=== PATIENT | male | born 1940 | race Caucasian/White ===

== ENCOUNTER → 2016-04-26 | Outpatient (REF) ==
[~2016-04-26] MED LIST: ALLOPURINOL300 MG PO; ASPIRIN E.C. 8181 MG PO; AVAPRO300 MG PO; B COMPLEX & B121 TAB PO; BEELITH; BYSTOLIC2.5 MG PO; BYSTOLIC5 MG PO; CALCIUM CITRATE1 TA1 PO; COZAAR100 MG PO; FLOMAX 0.40.4 MG/CAP PO; GABAPENTIN300 M1 PO; HCTZ 25MG25 MG PO; IRON325 M2 PO; K-DUR20 MEQ PO; KLONOPIN 0.5MG0.5 MG PO; KLONOPIN 1MG1 MG PO; MAG-OX 400400 MG/TAB PO; MICROZIDE12.5 MG PO; MUCINEX 60600 MG/TA1 PO; MULTI VITAMINS1 TAB PO; NEURONTIN300 MG/CAP PO; NEXIUM40 MG PO; NORCO 325 MG-51 TAB PO; OCUVITE1 TA1 PO; OMEGA 31000 MG; PHARMASSURE GA500 MG PO; POTASSIUM CH2 MEQ/ML; PRILOSEC 20MG20 MG PO; PROMETHAZINE V473 M2 PO; PURE & GENTLE 330 ML OP; ROBITUSSIN100 MG/5 M PO; ULTRAM 50MG TAB50 MG PO; VALIUM 5MG T5 MG/TAB PO; VITAMIN B-625 MG; VITAMIN D32000 IU PO; ZYLOPRIM 300MG300 MG PO; ZYRTEC 10MG10 MG PO
== END ==
LOC: ZMSC 11:28
DX: Z01.89 Encounter for other specified special examinations (principal)

== ENCOUNTER → 2016-06-12 | Outpatient (CLI) | payer MEDICARE, BC | LOC: COL.RAD 10:13 | DX: N50.3 Cyst of epididymis (principal) ==

== ENCOUNTER 2016-07-04 08:54 | Day surgery (SDC) | payer MEDICARE, BC ==
[~2016-07-04] VITALS: Ht 182.9 cm; Wt 112.2 kg
[2016-07-04] VITALS (7 sets, daily range): BP systolic 119–142; BP diastolic 74–94; PULSE 61–72; TEMP 97
[~2016-07-04 08:54] MED LIST changes: -BYSTOLIC2.5 MG PO; -BYSTOLIC5 MG PO; -MICROZIDE12.5 MG PO; -MUCINEX 60600 MG/TA1 PO; -MULTI VITAMINS1 TAB PO; -ROBITUSSIN100 MG/5 M PO; -VITAMIN D32000 IU PO; -ZYRTEC 10MG10 MG PO
[2016-07-04] MEDS ORDERED: MUCINEX 60600 MG/TA1 PO (09:31)
[2016-07-04] MEDS ORDERED: MICROZIDE12.5 MG PO (09:33)
[2016-07-04] MEDS ORDERED: MULTI VITAMINS1 TAB PO (09:35)
[2016-07-04] MEDS ORDERED: BYSTOLIC2.5 MG PO (09:36)
[2016-07-04] MEDS ORDERED: ROBITUSSIN100 MG/5 M PO (09:41)
[2016-07-04 10:04] LABS: HEMATOCRIT 43.1 % (42.0-52.0); HEMOGLOBIN 15.1 g/dl (13.5-18.0); MEAN CELL VOLUME 93 fl (80.0-100.0); MEAN CORPUSCULAR HEMOGLOBIN 33 pg (27.0-31.0); MEAN CORPUSCULAR HGB CONC 35 g/dl (33.0-37.0); MEAN PLATELET VOLUME 10.4 fl (7.4-10.4); PLATELET COUNT 196 K/mm3 (130-400); RED BLOOD COUNT 4.63 M/mm3 (4.20-5.60); REDCELL DISTRIBUTION WIDTH-CV 13.1 % (11.5-14.5); WHITE BLOOD COUNT 7.4 K/mm3 (4.8-10.8)
[2016-07-04 10:08] LABS: INR 1.1 (0.8-3.0); PROTHROMBIN TIME 12.1 SECONDS (9.7-12.8)
[2016-07-04 10:19] LABS: CALCIUM 9.4 mg/dL (8.4-10.2); CREATININE, serum 0.62 mg/dL (0.66-1.25); POTASSIUM 3.9 mmol/L (3.4-5.0)
== END 2016-07-04 16:19 | disposition home or self-care (01) ==
LOC: EUO 08:54 → COL.RAD 09:00 → EUO 09:00
PROVIDERS: Internal Medicine Cardiovascular Disease
DX: R94.39 Abnormal result of other cardiovascular function study (principal); R00.1 Bradycardia, unspecified; K21.9 Gastro-esophageal reflux disease without esophagitis; I44.7 Left bundle-branch block, unspecified; I34.1 Nonrheumatic mitral (valve) prolapse; G62.9 Polyneuropathy, unspecified; R06.02 Shortness of breath; E55.9 Vitamin D deficiency, unspecified; M85.80 Other specified disorders of bone density and structure, unspecified site; I10 Essential (primary) hypertension
CPT/HCPCS: C1769; C1887; C1894; J1200; J1644; J2250; J3010; J7512; Q9967

== ENCOUNTER 2016-10-22 10:02 | Day surgery (SDC) | payer MEDICARE, BC ==
[~2016-10-22] VITALS: Ht 182.9 cm; Wt 109.0 kg
[2016-10-22] VITALS (7 sets, daily range): BP systolic 119–143; BP diastolic 81–94; PULSE 60–79; TEMP 97.9–98.4
[~2016-10-22 10:02] MED LIST changes: +BYSTOLIC2.5 MG PO; +MICROZIDE12.5 MG PO; +MUCINEX 60600 MG/TA1 PO; +MULTI VITAMINS1 TAB PO; +ROBITUSSIN100 MG/5 M PO
[2016-10-22 10:22] LABS: HEMATOCRIT 46.8 % (42.0-52.0); HEMOGLOBIN 16.3 g/dl (13.5-18.0); MEAN CELL VOLUME 94 fl (80.0-100.0); MEAN CORPUSCULAR HEMOGLOBIN 33 pg (27.0-31.0); MEAN CORPUSCULAR HGB CONC 35 g/dl (33.0-37.0); MEAN PLATELET VOLUME 10.5 fl (7.4-10.4); PLATELET COUNT 195 K/mm3 (130-400); RED BLOOD COUNT 4.98 M/mm3 (4.20-5.60); REDCELL DISTRIBUTION WIDTH-CV 13.3 % (11.5-14.5)
[2016-10-22 10:27] LABS: PROTHROMBIN TIME 11.2 SECONDS (9.7-12.8)
[2016-10-22 10:31] LABS: CALCIUM 9.8 mg/dL (8.4-10.2); CREATININE, serum 0.66 mg/dL (0.66-1.25); POTASSIUM 4.3 mmol/L (3.4-5.0)
[2016-10-22] MEDS ORDERED: ZYRTEC 10MG10 MG PO (11:19)
[2016-10-22] MEDS ORDERED: VITAMIN D32000 IU PO (11:20)
[2016-10-23 00:12] VITALS: BP 119/82; PULSE 67; TEMP 98
[2016-10-23 04:15] VITALS: BP 112/67; PULSE 65; TEMP 98.2
[2016-10-23 08:19] VITALS: BP 108/75; PULSE 73; TEMP 97.5
[2016-10-23] MEDS ORDERED: BYSTOLIC5 MG PO (11:47)
== END 2016-10-23 12:17 | disposition home or self-care (01) ==
LOC: COL.CAR 10:02 → MEDICAL 13:33 → COL.CAR 10-23 12:17
PROVIDERS: Internal Medicine Cardiovascular Disease
DX: I49.5 Sick sinus syndrome (principal); R00.1 Bradycardia, unspecified; I44.7 Left bundle-branch block, unspecified; I10 Essential (primary) hypertension; G47.30 Sleep apnea, unspecified
CPT/HCPCS: OP; C1785; C1894; C1898; J0690; J2250; J3010; J7030

== ENCOUNTER → 2017-03-26 | Outpatient (CLI) | payer MEDICARE, BC ==
[~2017-03-26] MED LIST changes: +BYSTOLIC5 MG PO; +VITAMIN D32000 IU PO; +ZYRTEC 10MG10 MG PO
== END ==
LOC: COL.RAD 03-21 13:15
DX: I67.1 Cerebral aneurysm, nonruptured (principal); G31.89 Other specified degenerative diseases of nervous system

== ENCOUNTER → 2017-05-23 | Outpatient (CLI) | payer MEDICARE, BC | LOC: COL.PUL 08:44 | DX: R06.09 Other forms of dyspnea (principal) ==

== ENCOUNTER → 2017-12-05 | Outpatient (CLI) | payer MEDICARE, BC | LOC: COL.RAD 14:00 | DX: M47.27 Other spondylosis with radiculopathy, lumbosacral region (principal); M48.07 Spinal stenosis, lumbosacral region; M99.74 Connective tissue and disc stenosis of intervertebral foramina of sacral region; M99.73 Connective tissue and disc stenosis of intervertebral foramina of lumbar region; M43.17 Spondylolisthesis, lumbosacral region; G89.29 Other chronic pain ==

== ENCOUNTER → 2018-01-07 | Outpatient (CLI) | payer MEDICARE, BC | LOC: COL.RAD 07:33 | DX: N13.30 Unspecified hydronephrosis (principal); R94.5 Abnormal results of liver function studies; Z86.2 Personal history of diseases of the blood and blood-forming organs and certain disorders involving the immune mechanism ==

== ENCOUNTER → 2018-01-14 | Outpatient (CLI) | payer MEDICARE, BC | LOC: MHCPAIN 12:05 | DX: G89.29 Other chronic pain (principal); M47.817 Spondylosis without myelopathy or radiculopathy, lumbosacral region; M54.16 Radiculopathy, lumbar region; M53.3 Sacrococcygeal disorders, not elsewhere classified; M48.061 Spinal stenosis, lumbar region without neurogenic claudication | CPT/HCPCS: G0463 ==

== ENCOUNTER → 2018-01-19 | Outpatient (CLI) | payer MEDICARE, BC | LOC: MHCPAIN 12:29 | DX: M47.817 Spondylosis without myelopathy or radiculopathy, lumbosacral region (principal); M54.16 Radiculopathy, lumbar region | CPT/HCPCS: A9585; J1040 ==

== ENCOUNTER → 2018-02-03 | Outpatient (CLI) | payer MEDICARE, BC | LOC: MHCPAIN 09:20 | DX: G89.29 Other chronic pain (principal); M47.817 Spondylosis without myelopathy or radiculopathy, lumbosacral region; M54.16 Radiculopathy, lumbar region; M53.3 Sacrococcygeal disorders, not elsewhere classified; M48.061 Spinal stenosis, lumbar region without neurogenic claudication | CPT/HCPCS: G0463 ==

== ENCOUNTER → 2018-02-09 | Outpatient (CLI) | payer MEDICARE, BC | LOC: MHCPAIN 08:31 | DX: Z76.89 Persons encountering health services in other specified circumstances (principal) ==

== ENCOUNTER → 2018-02-23 | Outpatient (CLI) | payer MEDICARE, BC | LOC: MHCPAIN 10:25 | DX: M47.817 Spondylosis without myelopathy or radiculopathy, lumbosacral region (principal); M54.16 Radiculopathy, lumbar region | CPT/HCPCS: A9585; J1100 ==

== ENCOUNTER → 2018-03-24 | Outpatient (CLI) | payer MEDICARE, BC | LOC: MHCPAIN 08:59 | DX: G89.29 Other chronic pain (principal); M47.817 Spondylosis without myelopathy or radiculopathy, lumbosacral region; M54.16 Radiculopathy, lumbar region; M53.3 Sacrococcygeal disorders, not elsewhere classified; M48.061 Spinal stenosis, lumbar region without neurogenic claudication | CPT/HCPCS: G0463 ==

== ENCOUNTER → 2018-04-02 | Outpatient (CLI) | payer MEDICARE, BC | LOC: MHCPAIN 08:47 | DX: M47.817 Spondylosis without myelopathy or radiculopathy, lumbosacral region (principal); M54.16 Radiculopathy, lumbar region | CPT/HCPCS: A9585; J1100; Q9967 ==

== ENCOUNTER → 2018-06-03 | Outpatient (CLI) | payer MEDICARE, BC | LOC: MHCPAIN 08:43 | DX: G89.29 Other chronic pain (principal); M47.817 Spondylosis without myelopathy or radiculopathy, lumbosacral region; M54.16 Radiculopathy, lumbar region; M53.3 Sacrococcygeal disorders, not elsewhere classified; M48.061 Spinal stenosis, lumbar region without neurogenic claudication | CPT/HCPCS: G0463 ==

== ENCOUNTER → 2018-08-31 | Outpatient (CLI) | payer MEDICARE, BC | LOC: MHCPAIN 09:10 | DX: G89.29 Other chronic pain (principal); M47.817 Spondylosis without myelopathy or radiculopathy, lumbosacral region; M54.16 Radiculopathy, lumbar region; M53.3 Sacrococcygeal disorders, not elsewhere classified; M48.061 Spinal stenosis, lumbar region without neurogenic claudication | CPT/HCPCS: G0463 ==

== ENCOUNTER → 2018-09-03 | Outpatient (CLI) | payer MEDICARE, BC | LOC: MHCPAIN 07:55 | DX: M47.817 Spondylosis without myelopathy or radiculopathy, lumbosacral region (principal); M54.16 Radiculopathy, lumbar region | CPT/HCPCS: A9585; J1100 ==

== ENCOUNTER → 2018-09-14 | Outpatient (CLI) | payer MEDICARE, BC | LOC: MHCPAIN 09:20 | DX: G89.29 Other chronic pain (principal); M47.817 Spondylosis without myelopathy or radiculopathy, lumbosacral region; M54.16 Radiculopathy, lumbar region; M53.3 Sacrococcygeal disorders, not elsewhere classified; M48.061 Spinal stenosis, lumbar region without neurogenic claudication | CPT/HCPCS: G0463 ==

== ENCOUNTER → 2018-09-17 | Outpatient (CLI) | payer MEDICARE, BC | LOC: MHCPAIN 07:42 | DX: M47.817 Spondylosis without myelopathy or radiculopathy, lumbosacral region (principal); M54.16 Radiculopathy, lumbar region | CPT/HCPCS: A9585; J1100 ==

== ENCOUNTER → 2018-10-21 | Outpatient (CLI) | payer MEDICARE, BC | LOC: MHCPAIN 09:27 | DX: G89.29 Other chronic pain (principal); M47.817 Spondylosis without myelopathy or radiculopathy, lumbosacral region; M54.16 Radiculopathy, lumbar region; M53.3 Sacrococcygeal disorders, not elsewhere classified; M48.061 Spinal stenosis, lumbar region without neurogenic claudication | CPT/HCPCS: G0463 ==

== ENCOUNTER → 2018-11-05 | Outpatient (CLI) | payer MEDICARE, BC | LOC: MHCPAIN 07:58 | DX: M47.817 Spondylosis without myelopathy or radiculopathy, lumbosacral region (principal); M54.16 Radiculopathy, lumbar region | CPT/HCPCS: A9585; J1100 ==

== ENCOUNTER → 2018-11-11 | Outpatient (CLI) | payer MEDICARE, BC | LOC: COL.RAD 07:46 | DX: N13.2 Hydronephrosis with renal and ureteral calculous obstruction (principal); Z87.442 Personal history of urinary calculi ==

== ENCOUNTER → 2018-12-07 | Outpatient (CLI) | payer MEDICARE, BC | LOC: MHCPAIN 08:55 | DX: G89.29 Other chronic pain (principal); M47.817 Spondylosis without myelopathy or radiculopathy, lumbosacral region; M54.16 Radiculopathy, lumbar region; M53.3 Sacrococcygeal disorders, not elsewhere classified; M48.061 Spinal stenosis, lumbar region without neurogenic claudication | CPT/HCPCS: G0463 ==

== ENCOUNTER → 2019-03-31 | Outpatient (CLI) | payer MEDICARE, BC | LOC: MHCPAIN 08:55 | DX: M47.817 Spondylosis without myelopathy or radiculopathy, lumbosacral region (principal); M54.16 Radiculopathy, lumbar region | CPT/HCPCS: G0463 ==

== ENCOUNTER → 2020-01-11 | Outpatient (CLI) | payer MEDICARE, BC | LOC: ZCOL.LAB 15:14 | DX: M79.89 Other specified soft tissue disorders (principal); R23.8 Other skin changes ==

== ENCOUNTER → 2020-01-12 | Outpatient (CLI) | payer MEDICARE, BC | LOC: COL.VAS 08:56 | DX: I82.812 Embolism and thrombosis of superficial veins of left lower extremity (principal); M71.22 Synovial cyst of popliteal space [Baker], left knee ==

== ENCOUNTER → 2020-05-02 | Outpatient (CLI) | payer MEDICARE, BC | LOC: MHCPAIN 08:00 | DX: M47.817 Spondylosis without myelopathy or radiculopathy, lumbosacral region (principal); M48.062 Spinal stenosis, lumbar region with neurogenic claudication; M53.3 Sacrococcygeal disorders, not elsewhere classified; G89.29 Other chronic pain | CPT/HCPCS: G0463 ==

== ENCOUNTER → 2020-05-04 | Outpatient (CLI) | payer MEDICARE, BC | LOC: MHCPAIN 09:52 | DX: M47.817 Spondylosis without myelopathy or radiculopathy, lumbosacral region (principal); M54.16 Radiculopathy, lumbar region | CPT/HCPCS: A9585; J1100; Q9967 ==

== ENCOUNTER → 2020-05-16 | Outpatient (CLI) | payer MEDICARE, BC | LOC: MHCPAIN 09:53 | DX: M47.817 Spondylosis without myelopathy or radiculopathy, lumbosacral region (principal); M48.062 Spinal stenosis, lumbar region with neurogenic claudication; M54.16 Radiculopathy, lumbar region; G89.29 Other chronic pain | CPT/HCPCS: G0463 ==

== ENCOUNTER → 2020-06-22 | Outpatient (CLI) | payer MEDICARE, BC | LOC: MHCPAIN 09:52 | DX: M47.817 Spondylosis without myelopathy or radiculopathy, lumbosacral region (principal); M54.17 Radiculopathy, lumbosacral region | CPT/HCPCS: A9585; J1100 ==

== ENCOUNTER → 2020-07-05 | Outpatient (CLI) | payer MEDICARE, BC | LOC: MHCPAIN 11:05 | DX: M47.816 Spondylosis without myelopathy or radiculopathy, lumbar region (principal); M54.16 Radiculopathy, lumbar region; M48.062 Spinal stenosis, lumbar region with neurogenic claudication; G89.29 Other chronic pain | CPT/HCPCS: G0463 ==

== ENCOUNTER → 2020-09-28 | Outpatient (CLI) | payer MEDICARE, BC | LOC: COL.RAD 14:04 | DX: S46.311A Strain of muscle, fascia and tendon of triceps, right arm, initial encounter (principal) ==

== ENCOUNTER → 2021-06-04 | Outpatient (CLI) | payer MEDICARE, BC | LOC: COL.RAD 13:48 | DX: Z95.0 Presence of cardiac pacemaker (principal) ==

== ENCOUNTER 2021-06-27 09:30 | Day surgery (SDC) | payer MEDICARE, BC ==
[2021-06-27] VITALS (10 sets, daily range): BP systolic 145–171; BP diastolic 87–122; PULSE 65–72; TEMP 97.9
[~2021-06-27] VITALS: Ht 177.8 cm; Wt 112.7 kg
[~2021-06-27 09:30] MED LIST changes: -OMEGA 31000 MG; +OMEGA-3 1000 MG1 CAP PO
[2021-06-27 10:03] LABS: HEMATOCRIT 47.9 % (42.0-52.0); HEMOGLOBIN 16.8 g/dl (13.5-18.0); MEAN CELL VOLUME 92 fl (80.0-100.0); MEAN CORPUSCULAR HEMOGLOBIN 32 pg (27-31); MEAN CORPUSCULAR HGB CONC 35 g/dl (33.0-37.0); PLATELET COUNT 232 K/mm3 (130-400); RED BLOOD COUNT 5.22 M/mm3 (4.20-5.60); REDCELL DISTRIBUTION WIDTH-CV 13.2 % (11.5-14.5)
[2021-06-27 10:15] LABS: INR 1.1 (0.8-3.0); PROTHROMBIN TIME 11.7 SECONDS (9.7-12.8)
[2021-06-27 10:17] LABS: PARTIAL THROMBOPLASTIN TIME 28.9 SECONDS (26.0-37.0)
[2021-06-27 10:19] LABS: CALCIUM 9.2 mg/dL (8.4-10.2); CREATININE, serum 0.77 mg/dL (0.72-1.25); POTASSIUM 4.4 mmol/L (3.5-4.5)
[2021-06-27] MEDS ORDERED: ZEBETA 5MG5 MG PO (12:35)
[2021-06-27] MEDS ORDERED: GENTEAL TEARS 015 M1 OU (12:37)
[2021-06-27] MEDS ORDERED: SINGULAIR 110 MG/TAB PO (12:38)
[2021-06-27] MEDS ORDERED: [UNRECOGNIZED DRUG - OTHER] DT (12:40)
[2021-06-27] MEDS ORDERED: TYLENOL 8 HR PO (12:41)
[2021-06-27] MEDS ORDERED: VITAMIN D31000 I1 PO (12:43)
[2021-06-27] MEDS ORDERED: NORVASC 5MG5 MG/TAB PO (15:02)
== END 2021-06-27 18:10 | disposition home or self-care (01) ==
LOC: COL.CAR 09:30
PROVIDERS: Internal Medicine Cardiovascular Disease
DX: R94.31 Abnormal electrocardiogram [ECG] [EKG] (principal); R93.1 Abnormal findings on diagnostic imaging of heart and coronary circulation; R06.09 Other forms of dyspnea; R06.02 Shortness of breath; I42.9 Cardiomyopathy, unspecified
CPT/HCPCS: J1644; J2250; J2405; J3010; J7512; Q9967

== ENCOUNTER 2022-07-02 13:21 | Inpatient (IN) | payer MEDICARE, BC ==
[~2022-07-02] VITALS: Ht 177.8 cm; Wt 109.0 kg
[~2022-07-02 13:21] MED LIST changes: +GENTEAL TEARS 015 M1 OU; +NORVASC 5MG5 MG/TAB PO; +SINGULAIR 110 MG/TAB PO; +TYLENOL 8 HR PO; +VITAMIN D31000 I1 PO; +ZEBETA 5MG5 MG PO; +[UNRECOGNIZED DRUG - OTHER] DT
[2022-07-02 14:04] LABS: HEMATOCRIT 41.8 % (42.0-52.0); HEMOGLOBIN 14.8 g/dl (13.5-18.0); MEAN CELL VOLUME 92 fl (80.0-100.0); MEAN CORPUSCULAR HEMOGLOBIN 33 pg (27-31); MEAN CORPUSCULAR HGB CONC 35 g/dl (33.0-37.0); MEAN PLATELET VOLUME 9.7 fl (7.4-10.4); PLATELET COUNT 229 K/mm3 (130-400); RED BLOOD COUNT 4.54 M/mm3 (4.20-5.60); REDCELL DISTRIBUTION WIDTH-CV 13.4 % (11.5-14.5)
[2022-07-02 14:22] LABS: CALCIUM 9.3 mg/dL (8.4-10.2); CREATININE, serum 0.83 mg/dL (0.72-1.25); POTASSIUM 3.8 mmol/L (3.5-4.5)
[2022-07-02 16:42] LABS: INR 1.1 (0.8-3.0); PROTHROMBIN TIME 12.3 SECONDS (9.7-12.8)
[2022-07-02 17:30] VITALS: BP 150/89; PULSE 71; TEMP 97.7
--- NOTE | 2022-07-02 17:33 | NUR ---
Pt arrived to the floor from ED. He is alert and oriented with pain complaints to his left hip. Pt did well with being moved from cart to bed using slide board. Pt then repositioned to get off ED cart sheets. Pt reported that it felt better being moved a little. Pt was able to void using urinal, he is requesting not to have a cortez catheter at this time. UA sent to lab. Brendon hose to his right leg and SCDs on bilaterally. Oriented pt and his to the room, both were familiar with how it works here. Educated on room service and assisted with ordering some dinner. Plan for sugery tomorrow which they are aware of. Ice to left hip. Pt on O2 at 2L per NC. PRN pain medication given for pain of 8-9/10.
[2022-07-02 17:36] LABS: COLLECTION METHOD CLEAN CATCH; PH 6.5 (5.0-8.5); URINE APPEARANCE Clear (CLEAR/HAZY); URINE BLOOD Negative (NEGATIVE); URINE COLOR Yellow (YELLOW); URINE GLUCOSE Negative (NEGATIVE); URINE KETONE Negative (NEGATIVE); URINE NITRATE Negative (NEGATIVE); URINE PROTEIN(semi-quant) Negative (NEGATIVE); URINE UROBILINOGEN 0.2 E.U/dL (0.2-1.0)
[2022-07-02 17:40] LABS: MUCOUS Present (NOT PRESENT); SQUAMOUS EPITHELIAL None Seen /hpf (0-10); URINE BACTERIA None Seen /hpf (NONE SEEN); URINE RBC 0-2 /hpf (0-2)
[2022-07-02] MEDS ORDERED: CYMBALTA 30MG30 MG PO (17:59)
[2022-07-02] MEDS ORDERED: CORDARONE200 MG/TAB PO (18:02)
[2022-07-02] MEDS ORDERED: NORCO 325 MG-7.1 TAB PO (18:44)
[2022-07-02] MEDS ORDERED: MASON NATURAL2000 IU PO (19:02)
[2022-07-02] MEDS ORDERED: VITAMIN D31000 I1 PO (19:03)
[2022-07-02 19:14] VITALS: BP 127/71; PULSE 70; TEMP 97.7
[2022-07-03] VITALS (13 sets, daily range): BP systolic 113–160; BP diastolic 67–92; PULSE 68–74; TEMP 97.5–98.9
[2022-07-03 06:48] LABS: BASO # 0.1 K/mm3 (0.0-0.2); BASO % 0.8 % (0.0-2.0); EOS # 0.2 K/mm3 (0.0-0.7); GRAN # 4.7 K/mm3 (1.4-6.5); GRAN % 60.8 % (42.2-75.2); HEMATOCRIT 42.2 % (42.0-52.0); HEMOGLOBIN 14.1 g/dl (13.5-18.0); LYMPH # 1.8 K/mm3 (1.2-3.4); LYMPH % 23.1 % (20.0-51.0); MEAN CELL VOLUME 96 fl (80.0-100.0); MEAN CORPUSCULAR HEMOGLOBIN 32 pg (27-31); MEAN CORPUSCULAR HGB CONC 33 g/dl (33.0-37.0); MEAN PLATELET VOLUME 10.3 fl (7.4-10.4); MONO # 0.9 K/mm3 (0.1-0.6); MONO % 11.9 % (1.7-9.3); PLATELET COUNT 222 K/mm3 (130-400); RED BLOOD COUNT 4.41 M/mm3 (4.20-5.60); REDCELL DISTRIBUTION WIDTH-CV 13.3 % (11.5-14.5)
[2022-07-03 07:00] LABS: CALCIUM 8.9 mg/dL (8.4-10.2); CREATININE, serum 0.74 mg/dL (0.72-1.25); POTASSIUM 3.4 mmol/L (3.5-4.5)
--- NOTE | 2022-07-03 09:00 | NUR ---
Pt doing okay this morning. He does have intermittent pain ranging from 3-10. Pt had ice bag on his left hip which had leaked. Linens changed, pt seemed to tolerate. Pt aware that the plan is for surgery today, unsure of physician or time at this time. Will update when made aware. Pt aware that he is to not have anything to eat or drink.
--- NOTE | 2022-07-03 10:27 | NUR ---
JOEY met with the patient, his (Phuong, ph#[phone]), daughter (Keturah), and grandson to discuss discharge plan. The patient lives in [place] with his . He reports independence with ADLs and has a cane. The patient's PCP is Dr. 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 The patient does not have a DPOA-HC in EMR, but he states that he does have one completed and that it designates his . The patient has a hip fracture and is awaiting surgery. SW discussed post-acute rehab upon discharge. The patient and his are agreeble to post-acute rehab and would prefer [facility] or [facility]. SW consulted [facility]. JOEY contacted and faxed a referral to [facility]. Awaiting screens. *Discharge plan: post-acute rehab. Referrals out*
--- NOTE | 2022-07-03 11:00 | NUR ---
Shift assessment is done. Patient has intermittent pain rating from 4-10. Using ice pack on his left thigh. Ice pack was leaked, so linen is changed. Surgery is scheduled for today, don't know the time yet.
--- NOTE | 2022-07-03 13:47 | NUR ---
Pt off the floor for surgery, family at bedside followed pt and staff down to OR waiting room. Pt voided prior to leaving for OR. Attempted to have BM, was unsuccessful.
--- NOTE | 2022-07-03 17:41 | NUR ---
Pt remains in surgery
--- NOTE | 2022-07-03 18:43 | NUR ---
Patient is back from surgery. Patient is alert and oriented x4, denies any pain, and in pleasant mood. Dressing is clean, dry, and intact. Patient's vitals are normal and is on 3L of O2 via nasal canula. He has some productive cough. Family is present in room.
[2022-07-04 03:17] VITALS: BP 108/84; PULSE 69; TEMP 99.2
[2022-07-04 07:10] VITALS: BP 115/65; PULSE 74; TEMP 98.1
--- NOTE | 2022-07-04 08:15 | NUR ---
0730 Shift Assessment complete, see shift assessment documentation. Pt stated no bowel movement since friday. SCDs were removed and put back on at time of assessment. Pt stated his pain was a 5 out of 10. Pt has call light within reach. Yeni FOSTER Student Nurse.
--- NOTE | 2022-07-04 08:23 | NUR ---
Lorraine, at [facility], reports that the patient looks clinically good and should be able to accept. They would just like to see therapy notes after surgery.
--- NOTE | 2022-07-04 09:27 | NUR ---
Initial visit; Patient says he is doing better and should be taking a walk today and later to determine if he will be going home or to re-hab. He thinks probably re-hab. Montessori Teacher offered God's blessings and will keep him in her prayers.
[2022-07-04 10:32] LABS: CALCIUM 9.4 mg/dL (8.4-10.2); CREATININE, serum 0.83 mg/dL (0.72-1.25); POTASSIUM 3.9 mmol/L (3.5-4.5)
[2022-07-04 10:56] LABS: HEMATOCRIT 39.8 % (42.0-52.0); HEMOGLOBIN 14.3 g/dl (13.5-18.0); MEAN CELL VOLUME 92 fl (80.0-100.0); MEAN CORPUSCULAR HEMOGLOBIN 33 pg (27-31); MEAN CORPUSCULAR HGB CONC 36 g/dl (33.0-37.0); MEAN PLATELET VOLUME 10.6 fl (7.4-10.4); PLATELET COUNT 218 K/mm3 (130-400); RED BLOOD COUNT 4.34 M/mm3 (4.20-5.60); REDCELL DISTRIBUTION WIDTH-CV 13.4 % (11.5-14.5)
[2022-07-04 11:13] LABS: BAND 4 % (0-10); LYMPHOCYTE 6 % (20.0-51.0); NEUTROPHILS 88 % (42.0-75.2); PLATELET ESTIMATE NORMAL (NORMAL)
--- NOTE | 2022-07-04 11:22 | NUR ---
1045 Catheter discontinued per doctors orders. 10ml of fluid drained from the balloon prior to removal. Pt tolerated procedure well. Catheter tip intact. 250mL of dark yellow urine in catheter at time of removal. Pt was able to void after removal of catheter. [facility] Student Nurse Yeni Sahni
[2022-07-04 11:48] VITALS: BP 112/75; PULSE 70
--- NOTE | 2022-07-04 13:41 | NUR ---
Kailee, with [facility], reports that they are looking at accepting the patient tomorrow. SW notified and faxed updates to Lorraine at [facility].
[2022-07-04 15:41] VITALS: BP 122/74; PULSE 71; TEMP 97.5
--- NOTE | 2022-07-04 17:18 | NUR ---
PATIENT TRANSFERED TO ROOM 326. REPORT GIVEN TO PRESLEY BERRY.
--- NOTE | 2022-07-04 17:41 | NUR ---
PATIENT TRANSFERED TO ROOM 326. PATIENT ARRIVED IN STABLE CONDITION. DRESSING TO L HIP CDI. IV PATENT. PATIENT DENIES ANY NEEDS OR COMPLAINTS AT THIS TIME. CALL LIGHT WITH INREACH. BED ALARM ON.
[2022-07-04 19:28] VITALS: BP 136/84; PULSE 70; TEMP 98
--- NOTE | 2022-07-04 21:13 | NUR ---
pt resting in bed watching tv. meds given and assessment complete. pt reports some pain, more in his back. pn medication given per emar. left hip dressing is cdi. scds and teds to ble. pt using IS. INT to right ac. pt denies needs. call light in reach.
[2022-07-04 23:17] VITALS: BP 116/62; PULSE 70; TEMP 97.4
[2022-07-05 04:58] VITALS: BP 140/77; PULSE 74; TEMP 98
[2022-07-05 06:07] LABS: BASO % 0.1 % (0.0-2.0); EOS % 0.1 % (0.0-4.0); GRAN # 10.6 K/mm3 (1.4-6.5); GRAN % 78.6 % (42.2-75.2); HEMATOCRIT 37.6 % (42.0-52.0); HEMOGLOBIN 13.2 g/dl (13.5-18.0); LYMPH # 1.3 K/mm3 (1.2-3.4); LYMPH % 9.6 % (20.0-51.0); MEAN CELL VOLUME 92 fl (80.0-100.0); MEAN CORPUSCULAR HEMOGLOBIN 32 pg (27-31); MEAN CORPUSCULAR HGB CONC 35 g/dl (33.0-37.0); MEAN PLATELET VOLUME 10.5 fl (7.4-10.4); MONO # 1.5 K/mm3 (0.1-0.6); PLATELET COUNT 204 K/mm3 (130-400); RED BLOOD COUNT 4.07 M/mm3 (4.20-5.60); REDCELL DISTRIBUTION WIDTH-CV 13.7 % (11.5-14.5)
[2022-07-05 06:20] LABS: CALCIUM 8.7 mg/dL (8.4-10.2); CREATININE, serum 0.66 mg/dL (0.72-1.25); POTASSIUM 3.8 mmol/L (3.5-4.5)
[2022-07-05 07:16] VITALS: BP 134/87; PULSE 70; TEMP 98.6
--- NOTE | 2022-07-05 09:08 | NUR ---
Pt doing well, pain tolearable, PRN pain medication given as pt will be working with therapy soon. Pt has finished his breakfast. He is aware that he will be going to [facility] today. Aquacell to left hip is CDI. INT to right AC. Lungs clear, bases diminished, heart rate regular and bowel sounds active. TEDs and SCDs just recently removed. Pt voiding using urinal. KRISTIN Monge director school of nursing also working with pt.
[2022-07-05] MEDS ORDERED: ASPI325T6 PO (09:15)
[2022-07-05] MEDS ORDERED: VITAMIN C500 MG PO (09:16)
[2022-07-05] MEDS ORDERED: DUO-KAPS1 CAP PO (09:17)
[2022-07-05] MEDS ORDERED: DULCOLAX S10 MG/SUPP RC (09:26)
[2022-07-05] MEDS ORDERED: SENOKOT S 50 MG1 TAB PO (09:26)
[2022-07-05] MEDS ORDERED: MIRALAX510G PO (09:26)
--- NOTE | 2022-07-05 09:53 | NUR ---
PT transferred to wheelchair and moved to room 335 to inpatient rehab. Pt left in the wheelchair and notified [facility] staff of patient arrival.
== END 2022-07-05 09:53 | DRG 522 ==
LOC: COL.ER 13:21 → MEDICAL 15:36 → SURG 07-04 17:37
PROVIDERS: Emergency Medicine; Orthopaedic Surgery; Physician Assistant; ADMIT Internal Medicine
PROC: 5A09457 Assistance with Respiratory Ventilation, 24-96 Consecutive Hours, Continuous Positive Airway Pressure (ICD-10-PCS; 2022-07-03)
PROC: 0SRS0J9 Replacement of Left Hip Joint, Femoral Surface with Synthetic Substitute, Cemented, Open Approach (ICD-10-PCS; principal; 2022-07-03 13:00)
DX: S72.012A Unspecified intracapsular fracture of left femur, initial encounter for closed fracture (principal); K59.00 Constipation, unspecified; I10 Essential (primary) hypertension; M10.9 Gout, unspecified; I48.91 Unspecified atrial fibrillation; F32.A Depression, unspecified; F41.9 Anxiety disorder, unspecified; G89.29 Other chronic pain; E87.6 Hypokalemia; K21.9 Gastro-esophageal reflux disease without esophagitis; N40.0 Benign prostatic hyperplasia without lower urinary tract symptoms; I49.5 Sick sinus syndrome; W18.39XA Other fall on same level, initial encounter; Y93.89 Activity, other specified; Z95.0 Presence of cardiac pacemaker; Z87.442 Personal history of urinary calculi; Y92.89 Other specified places as the place of occurrence of the external cause; Z79.82 Long term (current) use of aspirin; Z79.899 Other long term (current) drug therapy; Z88.2 Allergy status to sulfonamides; Z91.041 Radiographic dye allergy status; Z91.013 Allergy to seafood; Z23 Encounter for immunization
CPT/HCPCS: A4314; A9284; C1776; J0690; J1100; J1170; J2250; J2270; J2370; J2405; J2704; J2795

== ENCOUNTER 2022-07-04 16:00 | Inpatient (IN) | payer MEDICARE, BC ==
[~2022-07-04] VITALS: Ht 177.8 cm; Wt 115.5 kg
[~2022-07-04 16:00] MED LIST changes: +CORDARONE200 MG/TAB PO; +CYMBALTA 30MG30 MG PO; +MASON NATURAL2000 IU PO; +NORCO 325 MG-7.1 TAB PO
[2022-07-05] MEDS ORDERED: ASPI325T6 PO (09:15)
[2022-07-05] MEDS ORDERED: VITAMIN C500 MG PO (09:16)
[2022-07-05] MEDS ORDERED: DUO-KAPS1 CAP PO (09:17)
[2022-07-05] MEDS ORDERED: MIRALAX510G PO (09:26)
[2022-07-05] MEDS ORDERED: DULCOLAX S10 MG/SUPP RC (09:26)
[2022-07-05] MEDS ORDERED: SENOKOT S 50 MG1 TAB PO (09:26)
--- NOTE | 2022-07-05 10:30 | NUR ---
NEW PATIENT FROM MEDICAL. DX STATUS POST UNILATERAL HIP FRACTURE. PATIENT ALERT AND ORIENED. LUNG CLEAR AND BOWEL SOUND ACTIVE. PATIENT ABLE TO GET UP WITH T HERAPY TODAY.
[2022-07-05 17:51] VITALS: BP 135/78; PULSE 79; TEMP 97.4
--- NOTE | 2022-07-05 19:43 | NUR ---
RECEIVED CHANGE OF SHIFT REPORT FROM DAY SHIFT RN.
[2022-07-05 21:51] VITALS: BP 143/74
--- NOTE | 2022-07-05 21:57 | NUR ---
PATIENT REQUESTED TO BE UP IN CHAIR DUE TO C/O CHRONIC BACK PAIN, PATIENT REPORTED L HIP PAIN WITH MOVEMENT DURING TRANSFER FROM BED TO CHAIR BUT PATIENT TOLERATED ACTIVITY WITH SOME DIFFICULTY DUE TO PAIN. PATIENT STATES AT TIME HE HAS SLEPT IN CHAIR AT HOME DUE TO HIS CHRONIC BACK PAIN. NO OTHER NEEDS REPORTED AT THIS TIME.
--- NOTE | 2022-07-06 00:45 | NUR ---
REQUESTED AND GIVEN TYLENOL FOR NECK DISCOMFORT WITH ICE PLACED TO L HIP AND BACK OF NECK. DENIES ANY OTHER NEEDS.
[2022-07-06 05:31] VITALS: BP 145/77; PULSE 70; TEMP 98.3
[2022-07-06 06:36] LABS: BASO # 0.1 K/mm3 (0.0-0.2); BASO % 0.5 % (0.0-2.0); EOS # 0.3 K/mm3 (0.0-0.7); EOS % 2.7 % (0.0-4.0); GRAN # 7.1 K/mm3 (1.4-6.5); GRAN % 64.3 % (42.2-75.2); HEMATOCRIT 37.4 % (42.0-52.0); HEMOGLOBIN 12.8 g/dl (13.5-18.0); LYMPH # 2.3 K/mm3 (1.2-3.4); MEAN CELL VOLUME 94 fl (80.0-100.0); MEAN CORPUSCULAR HEMOGLOBIN 32 pg (27-31); MEAN CORPUSCULAR HGB CONC 34 g/dl (33.0-37.0); MEAN PLATELET VOLUME 10.2 fl (7.4-10.4); MONO # 1.2 K/mm3 (0.1-0.6); PLATELET COUNT 201 K/mm3 (130-400); RED BLOOD COUNT 3.98 M/mm3 (4.20-5.60); REDCELL DISTRIBUTION WIDTH-CV 13.8 % (11.5-14.5)
[2022-07-06 06:51] LABS: CALCIUM 8.7 mg/dL (8.4-10.2); CREATININE, serum 0.59 mg/dL (0.72-1.25); POTASSIUM 3.7 mmol/L (3.5-4.5)
--- NOTE | 2022-07-06 07:14 | NUR ---
Shift report received from night supervisor RN.
--- NOTE | 2022-07-06 07:25 | NUR ---
CHANGE OF SHIFT REPORT GIVEN TO DAY SHIFT RNDESI.
--- NOTE | 2022-07-06 10:42 | NUR ---
Pt is back in his room after Group Therapy. He would like to stay up in his wheelchair awhile longer. He denies pain/discomfort. Call light is in his reach.
--- NOTE | 2022-07-06 12:20 | NUR ---
Patient is a new [facility] admission from the Surgical Unit. Please see intake assessment/discharge planning documentation by Maia Chery dated 07/03/2022 for details. Patient spouse is Phuong ([phone]); patient reports he has DPOA-HC documentation at home nominating Phuong as his primary agent. Patient and spouse will meet with the [facility] treatment team weekly to discuss care planning and discharge needs. Patient and spouse verbalized understanding of services provided at admission to [facility] program. *Discharge needs pending patient recovery*
--- NOTE | 2022-07-06 12:56 | NUR ---
Left hip aquacell with scant amt of dried drainage. Dressing change completed. Pt participated in Group Therapy this morning. He has denied left hip pain throughout the shift so far but has reported some mild neck pain. Pt thinks this may be d/t sitting up in his wheelchair today. Tylenol was given per PRN order when he returned from Group Therapy. Pt resting supine in bed. Ice pack given. is at the bedside. He denies additional needs. Call light is in his reach. Bed alarm is on.
--- NOTE | 2022-07-06 15:47 | NUR ---
Mod asst provided to move BLE over EOB and assist to standing position from bed. CGA provided as pt ambulated w/ FWW to bathroom and back to bed. Pt reporting lt. hip pain at 8/10. [place] given per PRN order. Ice pack given. Pt denies other needs. Call light is in his reach. Bed alarm is on.
[2022-07-06 17:33] VITALS: BP 132/75; PULSE 71; TEMP 97.9
--- NOTE | 2022-07-06 19:08 | NUR ---
RECEIVED CHANGE OF SHIFT REPORT FROM DAY SHIFT RN.
--- NOTE | 2022-07-06 19:28 | NUR ---
PATIENT REPORTS HIP DISCOMFORT, AGREED TO TAKE TYLENOL FOR DISCOMFORT AND [place] AT HS. NO OTHER NEEDS VOICED AT THIS TIME. EXIT ALARM ON, CALL LIGHT IN REACH.
[2022-07-07 05:15] VITALS: BP 148/79; PULSE 70; TEMP 98.5
--- NOTE | 2022-07-07 07:21 | NUR ---
CHANGE OF SHIFT REPORT GIVEN TO DAY SHIFT RNSUDHA.
[2022-07-07 17:17] VITALS: BP 119/68; PULSE 74; TEMP 97.8
--- NOTE | 2022-07-07 18:50 | NUR ---
Shift summary: Pt Ox4, pain well controlled on PRN [place] x 2 this shift. Pt up to BR with 1A and walker. Voids without difficulty, BM x 3. Miralax held this AM. Yazmin peterson remains to L hip, CDI, no drainage or shadowing noted. Shift report given to PRESLEY Cavazos.
--- NOTE | 2022-07-07 19:00 | NUR ---
RECEIVED CHANGE OF SHIFT REPORT FROM DAY SHIFT RN.
[2022-07-08 05:21] VITALS: BP 133/71; PULSE 69; TEMP 98.7
--- NOTE | 2022-07-08 07:08 | NUR ---
CHANGE OF SHIFT REPORT GIVEN TO DAY SHIFT RNDESI.
--- NOTE | 2022-07-08 07:09 | NUR ---
Shift report received from shift supervisor film processing RN.
--- NOTE | 2022-07-08 08:53 | NUR ---
Pt just completed a shower w/ OT. Aquacell dressing placed on left hip incision is CDI - dressing removed and steristrips left on. Red rash area noted to upper left back and lower left back. Pt reports the lower left back rash was bothersome this morning. Dr. Turner in room to assess pt. Pt currently working on dressing with OT. Call light is in his reach.
--- NOTE | 2022-07-08 13:44 | NUR ---
Has lack of transportation kept you from medical appts, meetings, work, or from getting things needed for daily living? NO How often do you feel lonely or isolated from those around you? NEVER Over the past 5 days, how much of the time has pain made it hard for you to sleep? OCCASIONALLY Over the past 5 days, how often have you limited your participation in therapy due to pain? RARELY/NOT AT ALL Over the past 5 days, how often have you limited your day-to-day activities because of pain? FREQUENTLY Have you had 2 or more falls in the past year or any fall with an injury? YES Did you have major surgery during the 100 days prior to admission? YES
--- NOTE | 2022-07-08 14:11 | NUR ---
Admission QIM scores were reviewed by the team. Code of 3 chosen for toilet hygiene was determined by team discussion to be the most usual performance before interventions for this patient during the assessment period. Code of 3 chosen for toilet transfer was determined by team discussion to be the most usual performance before interventions for this patient during the assessment period. Code of 3 chosen for lying to sitting on side of bed was determined by team discussion to be the most usual performance before interventions for this patient during the assessment period. Code of 3 chosen for sit to stand was determined by team discussion to be the most usual performance for this patient during the discharge assessment period. Code of 3 chosen for chair/bed to chair transfer was determined by team discussion to be the most usual performance before interventions for this patient during the assessment period. Code of 3 chosen for walk 10 feet was determined by team discussion to be the most usual performance for this patient during the discharge assessment period.--Yoana Mcintyre, PD
--- NOTE | 2022-07-08 15:10 | NUR ---
Pt sitting up in the recliner w/ BLE elevated on the footrest. is at the bedside. Left hip incision DISPENSING OPERATOR w/ CDI steristrips. Pt denies pain or discomfort. Denies other needs. Call light is in his reach. Chair alarm is on.
--- NOTE | 2022-07-08 15:53 | NUR ---
Nozzle Operator met with patient and his , Phuong to follow up after the weekend. Patient stated yesterday and today, he has been feeling more positive. Patient has no questions or concerns for SW at this time.
--- NOTE | 2022-07-08 16:11 | NUR ---
CGA provided as pt stood from recliner and transferred to bed using a FWW. He is reporting left hip and left ankle pain. PRN [place] given at his request. He denies toileting needs at this time or other needs. Call light is in his reach. Bed alarm is on.
[2022-07-08 17:17] VITALS: BP 124/71; PULSE 69; TEMP 97.4
--- NOTE | 2022-07-08 22:18 | NUR ---
pt resting in bed watching tv. meds given and assessment complete. pt reports some low back pain but denies pain in the hip. redness is present. incision is cdi. ice to left hip. german hose to ble. fall precautions in place. assisted pt to bathroom, gait steady with walker. pt denies needs at this time. call light within reach..
[2022-07-09 04:39] VITALS: BP 130/85; PULSE 70; TEMP 97
--- NOTE | 2022-07-09 05:37 | NUR ---
pt asleep but easily arousable upon room entry, cpap on. pt denies needs for pain medication at this time.
--- NOTE | 2022-07-09 06:49 | NUR ---
Shift report received from control area operator RN.
--- NOTE | 2022-07-09 08:28 | NUR ---
Pt is off the unit for PT.
--- NOTE | 2022-07-09 10:11 | NUR ---
Pt resting supine in bed, has a visitor in his room. [place] given this morning for report of left hip pain. Pt currently denies pain at this time. Ice pack in place to left hip. Hip incision is REFRIGERATION MECHANIC HELPER with steristrips. Pt denies other needs. Call light is his reach. Bed alarm is on.
--- NOTE | 2022-07-09 14:15 | NUR ---
Follow-up; Patient thanked Co Founder And Chief Strategy Officer for stopping by and offering God's blessings.
--- NOTE | 2022-07-09 16:15 | NUR ---
Broadcasting Equipment Mechanic met with patient and spouse, Phuong and scheduled family meeting for tomorrow at 1000.
[2022-07-09 17:42] VITALS: BP 107/67; PULSE 69; TEMP 97.9
--- NOTE | 2022-07-09 20:42 | NUR ---
pt resting in bed. assisted to bathroom, gait steady. pt reports pain in the lower back that radiates down the leg, pain medication given per emar. cpap set up. pt denies needs. call light in reach.
[2022-07-10 05:19] VITALS: BP 126/71; PULSE 71; TEMP 96.9
--- NOTE | 2022-07-10 06:57 | NUR ---
Shift report received from fast food shift supervisor RN. Pt awake and resting supine in bed. Pt assisted w/ ordering breakfast. He denies pain. Call light is in his reach. Bed alarm is on.
--- NOTE | 2022-07-10 08:47 | NUR ---
Pt off the unit for PT.
--- NOTE | 2022-07-10 14:42 | NUR ---
Pt ambulating off the unit with PT. He reports left hip pain is at 4/10 currently but his pain worsens while he is up ambulating. [place] given per PRN order.
--- NOTE | 2022-07-10 14:51 | NUR ---
Privacy Manager attended family meeting which included patient's spouse, Phuong at bedside. PT/OT and Rehab Physician provided update on patient. SW reviewed recommendation for Home Health, which patient is agreeable to. Discharge date set for Friday, a week from today. Patient feels good about this, he just wants to be well enough to not cause too much burden for his . Patient has two steps into the home, but can live all on one level.
[2022-07-10 17:35] VITALS: BP 135/54; PULSE 56; TEMP 97.6
--- NOTE | 2022-07-10 19:12 | NUR ---
RECEIVED CHANGE OF SHIFT REPORT FROM DAY SHIFT RN.
[2022-07-11 05:57] VITALS: BP 121/75; PULSE 69; TEMP 97.7
--- NOTE | 2022-07-11 07:05 | NUR ---
BEDSIDE REPORT DONE ORDER WITH NIGHT NURSE CELCEIA
--- NOTE | 2022-07-11 07:41 | NUR ---
CHANGE OF SHIFT REPORT GIVEN TO DAY SHIFT RNJUNAA.
--- NOTE | 2022-07-11 16:58 | NUR ---
New Grad Rn met with patient to review and provide copy of team conference notes. SW also provided Medicare.gov list of Home Health agencies for patient to review.
[2022-07-11 17:17] VITALS: BP 135/64; PULSE 64; TEMP 98.2
--- NOTE | 2022-07-11 21:30 | NUR ---
PT RESTING IN BED. A&O X4. DIRECTOR OF TEACHER EDUCATION ASSISTED PT CHANGING INTO GOWN. JULEE HOSE OFF. SEE MAR FOR PAIN MED GIVEN. CALL LIGHT IN REACH. BED ALARM SET.
[2022-07-12 06:11] VITALS: BP 123/68; PULSE 70; TEMP 97.8
--- NOTE | 2022-07-12 06:59 | NUR ---
BEDSIDE REPORT DONE ORDER WITH NIGHT NURSE HILLARY
[2022-07-12 18:00] VITALS: BP 115/70; PULSE 74; TEMP 96.2
--- NOTE | 2022-07-12 21:00 | NUR ---
PT RESTING IN BED WATCHING TV. REQUESTED PAIN MED AND SOMETHING FOR SLEEP. SEE MAR. AHUMADA HERE TO ASSIST WITH HS CARES.
[2022-07-13 05:40] VITALS: BP 118/73; PULSE 71; TEMP 98.7
--- NOTE | 2022-07-13 06:47 | NUR ---
Shift report received from life insurance salesperson RN.
--- NOTE | 2022-07-13 08:49 | NUR ---
SBA provided as pt stood from bed and ambulated to the bathroom. SBA provided for hygiene and clothing mgmt. Supervision provided as pt stood at sink w/ FWW for oral hygiene. Set up help provided for upper/lower body dressing with AE. Left hip incision SOFTWARE ENGINEER KERNEL w/ steristrips. Redness w/ mild itching noted around incision. Pt reporting "I had some trouble with the tape". Will continue to monitor. Pt sitting in recliner to wait for Group Therapy. He denies other needs. Call light is in his reach. Chair alarm is on.
--- NOTE | 2022-07-13 09:47 | NUR ---
Pt is off the unit for Group Therapy.
--- NOTE | 2022-07-13 12:20 | NUR ---
Pt resting supine in bed with HOB slightly elevated. is at the bedside. Pt reporting mild low back pain and would like a lidocaine patch as discussed with the hospitalist this morning. Will contact hospitalist because no order has been placed yet. Pt denies other needs. Call light is in his reach. Bed alarm is on.
--- NOTE | 2022-07-13 17:03 | NUR ---
Pt up to ambulate w/ FWW escorted by nurse. Pt ambulated from room to surgical nurse station and back. Gait steady. VC's provided for pt to stand upright.
[2022-07-13 17:28] VITALS: BP 107/63; PULSE 71; TEMP 97.7
--- NOTE | 2022-07-13 19:44 | NUR ---
PATIENT SLEEPING. NO DISTRESS.
--- NOTE | 2022-07-14 00:35 | NUR ---
PT AWAKE. RELATES CANT SLEEP. ENC PT TO TURN OFF LIGHT AND TV. SEE MAR FOR PAIN MED GIVEN. CPAP ON NOW.
[2022-07-14 05:13] VITALS: BP 118/84; PULSE 70; TEMP 98.4
--- NOTE | 2022-07-14 09:00 | NUR ---
Patient awake, alert and oriented this AM. Complaining of some lower back pain, relieved by PRN pain medication. AM assessment complete, morning medications given. Assisted to the bathroom, standby assist with walker. Back in bed in the lowest position, call light within reach, bed alarm on.
--- NOTE | 2022-07-14 11:15 | NUR ---
Patient assisted to bathe and change into clean clothes. Then ambulated around the unit, needing occasional breaks to regain balance and breath. Standy assist using walker. Sitting up in chair after walk, chair alarm on, call light within reach.
[2022-07-14 17:12] VITALS: BP 114/76; PULSE 64; TEMP 97.8
[2022-07-15 05:11] VITALS: BP 133/87; PULSE 66; TEMP 97.6
--- NOTE | 2022-07-15 06:52 | NUR ---
Shift report received from loss prevention detective RN.
--- NOTE | 2022-07-15 07:14 | NUR ---
Pt awake and resting supine in bed. Requesting a pain pill for back pain and left hip pain. [place] given per PRN order. Lidocaine patches initiated over the weekend and pt does not feel these have been helpful. Will continue to monitor. Pt denies other needs. Call light is in his reach. Bed alarm is on.
--- NOTE | 2022-07-15 08:50 | NUR ---
Pt is off the unit for PT.
--- NOTE | 2022-07-15 10:23 | NUR ---
OT in room to assist pt w/ showering. Red rash noted to left inner thigh and to left side of scrotum. Pt reports some mild itching, no burning. Pt reports rash has been present since last week. Barrier ointment applied. Will continue to monitor.
--- NOTE | 2022-07-15 15:16 | NUR ---
JOEY met with the patient to introduce oneself and to follow up on home health preference. The plan is for the patient to discharge on with home health. The patient is ready to get back home and he states that him and his chose [facility]. They know one of the physical therapist that works for them. JOEY presented and read the IM form outloud to him. The patient verbalized understanding and signed the form. He declined a copy. JOEY contacted and faxed a referral to Maribell at [facility]. Maribell reports that they are able to accept the patient.
[2022-07-15 17:35] VITALS: BP 130/71; PULSE 71; TEMP 98.7
--- NOTE | 2022-07-15 19:00 | NUR ---
RECEIVED CHANGE OF SHIFT REPORT FROM DAY SHIFT RN.
--- NOTE | 2022-07-15 19:40 | NUR ---
PATIENT RESTING IN BED, EXIT ALARM ON, CALL LIGHT IN REACH. DENIES ANY NEEDS AT THIS TIME.
[2022-07-15 21:58] VITALS: BP 151/90; PULSE 94; TEMP 97.7
[2022-07-16 05:22] VITALS: BP 141/84; PULSE 72; TEMP 97.5
--- NOTE | 2022-07-16 07:12 | NUR ---
Received shift report from the night nurseMacy RN.
--- NOTE | 2022-07-16 07:26 | NUR ---
CHANGE OF SHIFT REPORT GIVEN TO DAY SHIFT RNLETICIA.
--- NOTE | 2022-07-16 09:24 | NUR ---
Patient laying bed after breakfast. Patient alert and oriented. Patient consumed 100% of breakfast. Left hip incision has some redness to the surrounding area where aquacel dressing was placed. Patient reports of mild pain at the affected area and prescribed lidocaine applied to the area. Noted rashes in the left groin and scrotum and micatin cream applied on . Patient has no needs or concerns at this time.
--- NOTE | 2022-07-16 10:21 | NUR ---
Patient c/o at left hip and requests for pain medication. [place] administered. See e-mar. Call armas within reach.
--- NOTE | 2022-07-16 15:45 | NUR ---
Has lack of transportation kept you from medical appts, meetings, work, or from getting things needed for daily living? no How often do you feel lonely or isolated from those around you? never Over the past 5 days, how much of the time has pain made it hard for you to sleep? RARELY OR NOT AT ALL Over the past 5 days, how often have you limited your participation in therapy due to pain? RARELY OR NOT AT ALL Over the past 5 days, how often have you limited your day-to-day activities because of pain? RARELY OR NOT AT ALL
[2022-07-16 17:07] VITALS: BP 114/75; PULSE 68; TEMP 98.2
--- NOTE | 2022-07-16 19:00 | NUR ---
RECEIVED CHANGE OF SHIFT REPORT FROM DAY SHIFT RN. PATIENT RESTING IN BED, EXIT ALARM ON, CALL LIGHT IN REACH. DENIES ANY NEEDS AT TIME OF REPORT.
[2022-07-16 21:57] VITALS: BP 124/60
[2022-07-17 06:03] VITALS: BP 141/79; PULSE 70; TEMP 97.3
--- NOTE | 2022-07-17 07:04 | NUR ---
CHANGE OF SHIFT REPORT FROM DAY SHIFT DESI SHERWOOD.
--- NOTE | 2022-07-17 07:13 | NUR ---
Shift report received from manufacturing supervisor 2nd shift RN.
[2022-07-17] MEDS ORDERED: NEURONTIN300 MG/CAP PO (09:04)
[2022-07-17] MEDS ORDERED: MICATIN2% TP (09:06)
--- NOTE | 2022-07-17 10:35 | NUR ---
The patient is to discharge back home with his today, 07/17, with home health services for [facility]/PT/OT from [facility]. SW attempted to notify Jassi at [facility]. SW left her a voicemail and faxed [facility] the discharge orders. No additional needs at this time.
--- NOTE | 2022-07-17 11:07 | NUR ---
DC instructions reviewed with the pt and his . They had no further questions. Belonging were gathered by the .
--- NOTE | 2022-07-17 11:36 | NUR ---
Pt escorted off unit via wheelchair, accompanied by and nurse. Pt was seatbelted for the ride home.
--- NOTE | 2022-07-18 14:43 | NUR ---
Discharge QIM scores were reviewed by the team. Code of 6 chosen for toilet hygiene was determined by team discussion to be the most usual performance for this patient during the discharge assessment period. Code of 6 chosen for toilet transfer was determined by team discussion to be the most usual performance for this patient during the discharge assessment period. Code of 3 chosen for putting on/taking off footwear was determined by team discussion to be the most usual performance for this patient during the discharge assessment period. Code of 3 chosen for chair/bed to chair transfer was determined by team discussion to be the most usual performance for this patient during the discharge assessment period. Code of 6 chosen for walk 10 feet was determined by team discussion to be the most usual performance for this patient during the discharge assessment period.--Yoana Mcintyre, PD
== END 2022-07-17 11:30 | disposition home health service (06) | DRG 561 ==
PROVIDERS: Physician Assistant; ADMIT Internal Medicine
DX: S72.002D Fracture of unspecified part of neck of left femur, subsequent encounter for closed fracture with routine healing (principal); I10 Essential (primary) hypertension; I48.91 Unspecified atrial fibrillation; E87.6 Hypokalemia; M10.9 Gout, unspecified; N40.0 Benign prostatic hyperplasia without lower urinary tract symptoms; F32.A Depression, unspecified; L25.9 Unspecified contact dermatitis, unspecified cause; F41.8 Other specified anxiety disorders; B35.6 Tinea cruris; K59.00 Constipation, unspecified; G89.29 Other chronic pain; R26.89 Other abnormalities of gait and mobility; W19.XXXD Unspecified fall, subsequent encounter; Y92.009 Unspecified place in unspecified non-institutional (private) residence as the place of occurrence of the external cause; Z73.6 Limitation of activities due to disability; Z79.82 Long term (current) use of aspirin; Z79.891 Long term (current) use of opiate analgesic; Z79.899 Other long term (current) drug therapy; Z95.0 Presence of cardiac pacemaker; Z96.659 Presence of unspecified artificial knee joint; Z96.642 Presence of left artificial hip joint; Z91.013 Allergy to seafood; Z88.2 Allergy status to sulfonamides; Z91.048 Other nonmedicinal substance allergy status